=== PATIENT | female | born 1975 | race Caucasian/White ===

== ENCOUNTER 2024-07-05 17:50 | Emergency (ER) | payer BC ==
[2024-07-05] MEDS ORDERED: Diazepam 5 MG TAB ONE (19:10)
[2024-07-05] MEDS ORDERED: Ketorolac Tromethamine 30 MG (1 mL) VIAL ONE (19:11)
[2024-07-05] MEDS ORDERED: Metoclopramide HCl 10 MG TAB ONE (19:11)
== END 2024-07-05 18:01 | disposition home or self-care (01) ==
LOC: ERS 17:50
DX: S00.12XA Contusion of left eyelid and periocular area, initial encounter (principal); R51.9 Headache, unspecified; W21.09XA Struck by other hit or thrown ball, initial encounter; Y93.89 Activity, other specified
CPT/HCPCS: 70480; 96372; J1885